=== PATIENT | male | born 1980 | race Caucasian/White ===

== ENCOUNTER 2017-07-23 09:15 | Observation (INO) | payer MEDICAID ==
[2017-07-23] MEDS ORDERED: Sodium Chloride 0.9% 1,000 ML IV STA (09:44)
--- NOTE | 2017-07-23 09:47 | ED PDOC ---
Arrival/HPI - General Chief Complaint: Back Pain Time Seen by Provider: 07/23/17 09:29 Historian: Patient - History of Present Illness Narrative History of Present Illness (Text): 07/23/17 09:44 36yr old male presents today with left sided flank pain radiating to the abdomen that started 2 hours ago. pt states he has been having on and off right sided back pain x 3 weeks. pt states he was seen by PMD in [place] and in [place] and was given pain medications. pt states 4 years ago patient had kidney stone with similar pain as current pain. no fever/chills. denies dysuria or urinary frequency. denies testicular pain. pt denies cp or sob. no vomiting/diarrhea. no other complaints. Past Medical History - Provider Review Nursing Documentation Reviewed: Yes - Travel History Have you recently traveled outside [place] w/in the past 3 mons?: Yes If Yes, travel location?: [place] - Infectious Disease Hx of Infectious Diseases: None - Tetanus Immunization Tetanus Immunization: Unknown - Past Medical History Past Medical History: No Previous - Renal Hx Renal Failure: No - Endocrine/Metabolic Hx Endocrine Disorders: No - Psychiatric Hx Substance Use: No - Past Surgical History Past Surgical History: No Previous - Surgical History Other/Comment: KIDNSY STONE - Anesthesia Hx Anesthesia: No - Suicidal Assessment Feels Threatened In Home Enviroment: No Family/Social History - Physician Review Nursing Documentation Reviewed: Yes Family/Social History: Unknown Family HX Smoking Status: Current Some Days Smoker Hx Alcohol Use: No Hx Substance Use: No Hx Substance Use Treatment: No Allergies/Home Meds Allergies/Adverse Reactions: Allergies No Known Allergies Allergy (Verified 08/16/14 08:10) Home Medications: Home Meds Medication Instructions Recorded Confirmed traMADol [Ultram] 50 mg 07/23/17 Review of Systems - Review of Systems Constitutional: absent: Fatigue, Fevers Respiratory: absent: SOB, Cough Cardiovascular: absent: Chest Pain, Palpitations Gastrointestinal: Abdominal Pain. absent: Constipation, Diarrhea, Nausea, Vomiting Genitourinary Male: absent: Dysuria, Frequency, Hematuria, Urinary Output Changes Musculoskeletal: Back Pain. absent: Arthralgias, Neck Pain Skin: absent: Rash, Pruritis Neurological: absent: Headache, Dizziness Psychiatric: absent: Anxiety, Depression Physical Exam Vital Signs Reviewed: Yes Vital Signs Temp Pulse Resp BP Pulse Ox 07/23/17 12:00 71 18 142/84 98 07/23/17 11:15 75 18 145/91 H 98 07/23/17 09:20 97.5 F L 79 18 149/100 H 99 Temperature: Afebrile Blood Pressure: Hypertensive Pulse: Regular Respiratory Rate: Normal Appearance: Positive for: Well-Appearing, Non-Toxic, Comfortable Pain Distress: None Mental Status: Positive for: Alert and Oriented X 3 - Systems Exam Head: Present: Atraumatic Mouth: Present: Moist Mucous Membranes Neck: Present: Normal Range of Motion Respiratory/Chest: Present: Clear to Auscultation, Good Air Exchange. No: Respiratory Distress, Accessory Muscle Use Cardiovascular: Present: Regular Rate and Rhythm, Normal S1, S2. No: Murmurs Abdomen: Present: Normal Bowel Sounds. No: Tenderness, Distention, Peritoneal Signs, Rebound, Guarding Genitourinary Male: Present: Normal External Genitalia, Other (chaparoned by Otis galeas RN. ). No: Penile Discharge, Testicle Tenderness, Penile Swelling, Masses, Erythema Back: Present: Normal Inspection, Other (+ left flank tenderness). No: CVA Tenderness, Midline Tenderness Upper Extremity: Present: Normal Inspection, Normal ROM Lower Extremity: Present: Normal Inspection, Normal ROM Neurological: Present: GCS=15, Speech Normal Skin: Present: Warm, Dry, Normal Color. No: Rashes Psychiatric: Present: Alert, Oriented x 3 Medical Decision Making ED Course and Treatment: 07/23/17 09:50 Patient is nontoxic well appearing with stable vital signs presenting with left flank pain radiating to left abdominal pain CBC: wnl CMP: wnl Lipase: wnl Urinalysis: + blood CAT scan:FINDINGS: LOWER THORAX: No evidence of acute pathology. LIVER: Heterogeneous attenuation is again noted suggestive of mild hepatic steatosis. No evidence of intrahepatic biliary ductal dilatation. GALLBLADDER AND BILE DUCTS: Unremarkable. PANCREAS: Unremarkable. No gross lesion or ductal dilatation. SPLEEN: Unremarkable. ADRENALS: Unremarkable. No mass. KIDNEYS AND URETERS: Mild left hydronephrosis up to 4 millimeter calculus at the left UP junction. There is 10 millimeter nonobstructing calculus at the mid to lower pole left kidney. The right kidney is grossly unremarkable. VASCULATURE: Unremarkable. No aortic aneurysm. BOWEL: Unremarkable. No obstruction. No gross mural thickening. APPENDIX: No evidence of appendicitis. PERITONEUM: Unremarkable. No free fluid. No free air. LYMPH NODES: Unremarkable. No enlarged lymph nodes. BLADDER: Unremarkable. REPRODUCTIVE: Unremarkable. BONES: No acute fracture. OTHER FINDINGS: Again seen is 4.7 x 1.8 centimeter intramuscular lipoma at the right lateral pelvic wall . IMPRESSION: Mild left hydronephrosis due to 4 millimeter calculus at the left UP junction. 10 millimeter nonobstructing calculus at the lower pole of the left kidney. Otherwise no evidence of acute pathology in the abdomen and pelvis. Patient reassessment: pt with continued pain after toradol. morphine added. Discussed all results with patient in depth pt reassessment; pt with continued pain despite toradol and morphine; additional dose of morphine added. flomax po added. case discussed with dr. gallegos; accepts observational status admission; case discussed with dr. alfaro; all aspects of this case were discussed the attending of record. Impression: Nephrolithiasis, hydronephrosis, intractable back pain Admitted observational status to [facility] with urology consult - Lab Interpretations Lab Results: 07/23/17 10:00 07/23/17 10:00 Lab Results 07/23/17 10:00: WBC 5.6, RBC 5.28, Hgb 16.0, Hct 45.7, MCV 86.6, MCH 30.3, MCHC 35.0, RDW 13.9, Plt Count 272, MPV 10.2, Gran % 43.4 L, Lymph % (Auto) 41.7 H, [place] % (Auto) 9.3 H, Eos % (Auto) 5.2 H, Baso % (Auto) 0.4, Gran # 2.43, Lymph # (Auto) 2.3, [place] # (Auto) 0.5, Eos # (Auto) 0.3, Baso # (Auto) 0.02 07/23/17 10:00: Sodium 140, Potassium 4.1, Chloride 105, Carbon Dioxide 24, Anion Gap 16, BUN 16, Creatinine 1.0, Est GFR ( Amer) > 60, Est GFR (Non- Af Amer) > 60, Random Glucose 97, Calcium 9.8, Total Bilirubin 1.1, AST 28, ALT 42, Alkaline Phosphatase 75, Total Protein 7.4, Albumin 4.2, Globulin 3.2, Albumin/Globulin Ratio 1.3, Lipase 137 07/23/17 10:00: Urine Color Light yellow, Urine Appearance Sl cloudy, Urine pH 6.0, Ur Specific [place] 1.025, Urine Protein 30 H, Urine Glucose (UA) Negative , Urine Ketones Negative, Urine Blood Large H, Urine Nitrate Negative, Urine Bilirubin Negative, Urine Urobilinogen 0.2, Ur Leukocyte Esterase Negative, Urine RBC 20 - 25, Urine WBC 0 - 2, Ur Epithelial Cells None - RAD Interpretation Radiology Orders: 07/23/17 09:38 ABD & PELVIS W/O PO OR IV CONT [CT] Stat CHEST PORTABLE [RAD] Stat - Medication Orders Current Medication Orders: Discontinued Medications Sodium Chloride (Sodium Chloride 0.9%) 1,000 mls @ 999 mls/hr IV .Q1H1M STA Stop: 07/23/17 10:44 Last Admin: 07/23/17 10:09 Dose: 999 mls/hr eMAR Start Stop Document 07/23/17 10:09 WATSON (Rec: 07/23/17 10:10 [id number] Intravenous Solution Start Date 07/23/17 Start Time 10:10 End Date 07/23/17 End time 11:10 Total Infusion Time 60 Ketorolac Tromethamine (Toradol) 30 mg IVP STAT STA Stop: 07/23/17 09:45 Last Admin: 07/23/17 10:10 Dose: 30 mg MAR Pain Assessment Document 07/23/17 10:10 WATSON (Rec: 07/23/17 10:12 [id number]) Pain Reassessment Is this a pain reassessment? Yes Presence of Pain Presence of Pain Yes Pain Scale Used Pain Scale Used Numeric Location Left, Right or Bilateral Left Upper or Lower Lower Pain Location Body Site Back Description Description Stabbing Intensity of Pain at present 10 Pain Behavior Moaning IVP Administration Document 07/23/17 10:10 WATSON (Rec: 07/23/17 10:12 [place] [id number]) Charges for Administration # of IVP Administrations 1 Morphine Sulfate (Morphine) 4 mg IVP STAT STA Stop: 07/23/17 12:02 Last Admin: 07/23/17 12:08 Dose: 4 mg MAR Pain Assessment Document 07/23/17 12:08 WATSON (Rec: 07/23/17 12:10 [place] [id number]) Pain Reassessment Is this a pain reassessment? Yes Presence of Pain Presence of Pain Yes Pain Scale Used Pain Scale Used Numeric Location Left, Right or Bilateral Left Upper or Lower Lower Pain Location Body Site Back Description Description Stabbing Intensity of Pain at present 4 IVP Administration Document 07/23/17 12:08 WATSON (Rec: 07/23/17 12:10 WATSON [id number]) Charges for Administration # of IVP Administrations 1 Morphine Sulfate (Morphine) 2 mg IVP STAT STA Stop: 07/23/17 13:45 Tamsulosin HCl (Flomax) 0.4 mg PO STAT STA Stop: 07/23/17 13:43 Disposition/Present on Arrival - Present on Arrival Any Indicators Present on Arrival: No History of DVT/PE: No History of Uncontrolled Diabetes: No Urinary Catheter: No History of Decub. Ulcer: No History Surgical Site Infection Following: None - Disposition Have Diagnosis and Disposition been Completed?: Yes Diagnosis: Intractable back pain, Nephrolithiasis, Hydronephrosis Disposition: HOSPITALIZED Disposition Time: 14:37 Patient Plan: Observation Condition: FAIR Referrals: Lester Gallardo MD [Primary Care Provider] - Follow up with primary Forms: [employer] (Lux[place]ish)
[2017-07-23 10:24] LABS: BASO # 0.02 K/mm3 (0.0-2.0); BASO % 0.4 % (0.0-3.0); EOS # 0.3 (0.0-0.7); EOS % 5.2 % (1.5-5.0); GRAN # 2.43 (1.4-6.5); GRAN % 43.4 % (50.0-68.0); LYMPH # 2.3 (1.2-3.4); LYMPH % 41.7 % (22.0-35.0); MEAN CELL VOLUME 86.6 fl (80.0-105.0); MEAN CORPUSCULAR HEMOGLOBIN 30.3 pg (25.0-35.0); MEAN PLATELET VOLUME 10.2 fl (7.0-11.0); MONO # 0.5 (0.1-0.6); MONO % 9.3 % (1.0-6.0); RBC 5.28 10^6/uL (3.5-6.1); RED CELL DISTRIBUTION WIDTH 13.9 % (11.5-14.5); WHITE BLOOD COUNT 5.6 10^3/ul (4.5-11.0)
[2017-07-23 10:25] LABS: URINE APPEARANCE SL CLOUDY (CLEAR); URINE BILIRUBIN NEGATIVE (NEGATIVE); URINE BLOOD LARGE (NEGATIVE); URINE COLOR LIGHT YELLOW (YELLOW); URINE GLUCOSE (UA) NEGATIVE (NEGATIVE); URINE LEUKOCYTE ESTERASE NEGATIVE Leu/uL (NEGATIVE); URINE PROTEIN 30 mg/dL (<30 mg/dL); URINE UROBILINOGEN 0.2 E.U./dL (<1 E.U./dL)
[2017-07-23 10:33] LABS: ALB/GLOB RATIO 1.3 (1.1-1.8); ALBUMIN 4.2 g/dL (3.0-4.8); ALT/SGPT 42 U/L (7-56); AST/SGOT 28 U/L (17-59); BLOOD UREA NITROGEN 16 mg/dL (7-21); CALCIUM 9.8 mg/dL (8.4-10.5); GFR AFRICAN-AMERICAN > 60; GFR NON-AFRICAN AMERICAN > 60; LIPASE 137 U/L (23-300)
[2017-07-23 11:11] LABS: URINE RBC 20 - 25 /hpf (0-2); URINE WBC 0 - 2 /hpf (0-6)
--- NOTE | 2017-07-23 11:25 | CT ---
PROCEDURE: CT Abdomen and Pelvis without intravenous contrast HISTORY: ABDOMINAL PAIN COMPARISON: Comparison is made to the previous study dated 08/16/2014 TECHNIQUE: Axial and reformatted coronal and sagittal CT images of the abdomen and pelvis were obtained without IV or oral contrast administration.. Contrast Dose: 0 Radiation dose: Total exam DLP = 1204.69 mGy-cm. This CT exam was performed using one or more of the following dose reduction techniques: Automated exposure control, adjustment of the mA and/or kV according to patient size, and/or use of iterative reconstruction technique. FINDINGS: LOWER THORAX: No evidence of acute pathology. LIVER: Heterogeneous attenuation is again noted suggestive of mild hepatic steatosis. No evidence of intrahepatic biliary ductal dilatation. GALLBLADDER AND BILE DUCTS: Unremarkable. PANCREAS: Unremarkable. No gross lesion or ductal dilatation. SPLEEN: Unremarkable. ADRENALS: Unremarkable. No mass. KIDNEYS AND URETERS: Mild left hydronephrosis up to 4 millimeter calculus at the left UP junction. There is 10 millimeter nonobstructing calculus at the mid to lower pole left kidney. The right kidney is grossly unremarkable. VASCULATURE: Unremarkable. No aortic aneurysm. BOWEL: Unremarkable. No obstruction. No gross mural thickening. APPENDIX: No evidence of appendicitis. PERITONEUM: Unremarkable. No free fluid. No free air. LYMPH NODES: Unremarkable. No enlarged lymph nodes. BLADDER: Unremarkable. REPRODUCTIVE: Unremarkable. BONES: No acute fracture. OTHER FINDINGS: Again seen is 4.7 x 1.8 centimeter intramuscular lipoma at the right lateral pelvic wall . IMPRESSION: Mild left hydronephrosis due to 4 millimeter calculus at the left UP junction. 10 millimeter nonobstructing calculus at the lower pole of the left kidney. Otherwise no evidence of acute pathology in the abdomen and pelvis.
[2017-07-23] MEDS ORDERED: Morphine 4 mg/ml ISec IVP STA (12:01)
[2017-07-23] MEDS ORDERED: Morphine 2 mg/ml ISec IVP STA (13:44)
[2017-07-23] MEDS ORDERED: Morphine 2 mg/ml ISec IVP PRN (15:22)
--- NOTE | 2017-07-23 15:40 | CP.PCM.HP ---
<So Klein - Last Filed: 07/23/17 15:35> History of Present Illness - History of Present Illness History of Present Illness: Billycaity Ernie DO PGY1 - IM H&P for Dr. Hurd CC: Left flank pain HPI: 36 yo M with PMH of prior kidney stones presents complaining of left sided flank pain radiating to his abdomen. Pain started 2 hours prior to presentation. He denies dysuria, hematuria, fever, chills, nausea, vomiting, diarrhea, constipation, chest pain, shortness of breath. Pain is sharp in character. He did not try anything to relieve the pain. Nothing in particular makes it worse. He reports that he had similar pain 3 weeks ago, while he was in [place], and was treated in the hospital with morphine, and sent home. He also had similar pain three years ago, and was told it was a kidney stone which he passed on his own. 12 point ROS was obtained and was negative except as above. 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 FHx: HTN in father All: NKDA Present on Admission - Present on Admission Any Indicators Present on Admission: No Past Patient History - Infectious Disease Hx of Infectious Diseases: None - Tetanus Immunizations Tetanus Immunization: Unknown - Past Social History Smoking Status: Current Some Days Smoker - RENAL Hx Renal Failure: No - ENDOCRINE/METABOLIC Hx Endocrine Disorders: No - PSYCHIATRIC Hx Substance Use: No - SURGICAL HISTORY Other/Comment: KIDNSY STONE - ANESTHESIA Hx Anesthesia: No Meds Allergies/Adverse Reactions: Allergies Allergy/AdvReac Type Severity Reaction Status Date / Time No Known Allergies Allergy Verified 07/23/17 16:29 Physical Exam - Constitutional Appears: Non-toxic, No Acute Distress - Head Exam Head Exam: ATRAUMATIC, NORMOCEPHALIC - Eye Exam Eye Exam: EOMI, Normal appearance, PERRL - ENT Exam ENT Exam: Mucous Membranes Moist - Neck Exam Neck exam: Positive for: Normal Inspection - Respiratory Exam Respiratory Exam: Clear to Auscultation Bilateral, NORMAL BREATHING PATTERN - Cardiovascular Exam Cardiovascular Exam: RRR, +S1, +S2 - GI/Abdominal Exam GI & Abdominal Exam: Normal Bowel Sounds, Soft. absent: Tenderness - Extremities Exam Extremities exam: Negative for: calf tenderness, pedal edema Additional comments: Large 10cm brown macule on right elbow - Back Exam Back exam: absent: CVA tenderness (L), CVA tenderness (R) - Neurological Exam Neurological exam: Alert, CN II-XII Intact, Oriented x3 - Psychiatric Exam Psychiatric exam: Normal Affect, Normal Mood - Skin Skin Exam: Dry, Intact, Normal Color Results - Vital Signs Recent Vital Signs: Last Vital Signs Temp 97.5 F L 07/23/17 09:20 Pulse 71 07/23/17 12:00 Resp 18 07/23/17 12:00 BP 142/84 07/23/17 12:00 Pulse Ox 98 07/23/17 12:00 - Labs Result Diagrams: 07/23/17 10:00 07/23/17 10:00 Assessment & Plan - Assessment and Plan (Free Text) Assessment: 36 yo M with PMH of prior kidney stones presents complaining of left sided flank pain radiating to his abdomen, onset 2 hours prior to admission. Noted to have 4mm stone in left UPJ with associated hydronephrosis seen on CT scan. Plan Left flank pain, 2/2 left ureterolithiasis/nephrolithiasis - CT A/P shows 4mm calculus in left UPJ with hydronephrosis up to the level of the stone, and 10mm nonobstructing calculus in mid-lower pole of left kidney - Afebrile, without leukocytosis; VSS - CMP and CBC wnl - IVF NS@200cc/hr - Encourage PO hydration - Start Flomax - Strain all urine - Pain control; Motrin/Toradol/Morphine for mild/moderate/severe pain, respectively - Urology consult requested; appreciate recs DVT Ppx: SCDs Patient seen, discussed, and reviewed with attending, Dr. Hurd <Eddi Hurd - Last Filed: 07/23/17 16:56> Results - Vital Signs Recent Vital Signs: Last Vital Signs Temp 97.5 F L 07/23/17 09:20 Pulse 71 07/23/17 12:00 Resp 18 07/23/17 12:00 BP 142/84 07/23/17 12:00 Pulse Ox 98 07/23/17 12:00 - Labs Result Diagrams: 07/23/17 10:00 07/23/17 10:00 Attending/Attestation - Attestation I have personally seen and examined this patient.: Yes I have fully participated in the care of the patient.: Yes I have reviewed all pertinent clinical information: Yes Notes (Text): 07/23/17 16:54 36 year old male with past medical history of prior kidney stone presents with complaint of left sided flank pain. CT abd/pelvis showed 4 mm left UPJ stone with hydronephrosis and 10 mm nonobstruction stone in left mid-lower pole kidney. Continue with fluids, analgesics and flomax. Strain for urine. Urology evaluation is requested. Eddi Hurd MD Hospitalist.
[2017-07-23] MEDS: Sodium Chloride 0.9% 1,000 ML IV SCH ×2 (15:42→20:31)
[2017-07-23 18:25] VITALS: BMI 37.3
[2017-07-23] MEDS ORDERED: Influenza Vaccine 60 mcg/0.5 mL SYR (4YR UP) IM ONE (18:25)
[2017-07-23] MEDS ORDERED: Pneumococcal 23-Valent Vaccine IM ONE (18:25)
[2017-07-23 23:06] VITALS: TEMP 97.9
[2017-07-24] MEDS: Sodium Chloride 0.9% 1,000 ML IV SCH ×2 (05:38→09:40)
--- NOTE | 2017-07-24 07:10 | RAD ---
HISTORY: left flank pain COMPARISON: No prior. FINDINGS: LUNGS: No active pulmonary disease. PLEURA: No significant pleural effusion identified, no pneumothorax apparent. CARDIOVASCULAR: Normal. OSSEOUS STRUCTURES: No significant abnormalities. VISUALIZED UPPER ABDOMEN: Normal. OTHER FINDINGS: None. IMPRESSION: No active disease.
[2017-07-24 08:12] VITALS: BP 142/85; PULSE 73; RESP 18; O2SAT 96
--- NOTE | 2017-07-24 23:11 | CP.PCM.DIS ---
<AmineSo - Last Filed: 07/25/17 19:41> Provider - Provider Date of Admission: 07/23/17 14:40 Attending physician: Eddi Hurd MD Primary care physician: Lester Gallardo MD Consults: Uro: Valeria Stiles Time Spent in preparation of Discharge (in minutes): 35 Diagnosis - Discharge Diagnosis (1) Nephrolithiasis Status: Acute Priority: High Hospital Course - Lab Results Lab Results: Most Recent Lab Values WBC 5.6 10^3/ul (4.5-11.0) 07/23/17 10:00 RBC 5.28 10^6/uL (3.5-6.1) 07/23/17 10:00 Hgb 16.0 g/dL (14.0-18.0) 07/23/17 10:00 Hct 45.7 % (42.0-52.0) 07/23/17 10:00 MCV 86.6 fl (80.0-105.0) 07/23/17 10:00 MCH 30.3 pg (25.0-35.0) 07/23/17 10:00 MCHC 35.0 g/dl (31.0-37.0) 07/23/17 10:00 RDW 13.9 % (11.5-14.5) 07/23/17 10:00 Plt Count 272 10^3/uL (120.0-450.0) 07/23/17 10:00 MPV 10.2 fl (7.0-11.0) 07/23/17 10:00 Gran % 43.4 % (50.0-68.0) L 07/23/17 10:00 Lymph % (Auto) 41.7 % (22.0-35.0) H 07/23/17 10:00 [place] % (Auto) 9.3 % (1.0-6.0) H 07/23/17 10:00 Eos % (Auto) 5.2 % (1.5-5.0) H 07/23/17 10:00 Baso % (Auto) 0.4 % (0.0-3.0) 07/23/17 10:00 Gran # 2.43 (1.4-6.5) 07/23/17 10:00 Lymph # (Auto) 2.3 (1.2-3.4) 07/23/17 10:00 [place] # (Auto) 0.5 (0.1-0.6) 07/23/17 10:00 Eos # (Auto) 0.3 (0.0-0.7) 07/23/17 10:00 Baso # (Auto) 0.02 K/mm3 (0.0-2.0) 07/23/17 10:00 Sodium 140 mmol/L (132-148) 07/23/17 10:00 Potassium 4.1 mmol/L (3.6-5.0) 07/23/17 10:00 Chloride 105 mmol/L (98-107) 07/23/17 10:00 Carbon Dioxide 24 mmol/L (21-33) 07/23/17 10:00 Anion Gap 16 (10-20) 07/23/17 10:00 BUN 16 mg/dL (7-21) 07/23/17 10:00 Creatinine 1.0 mg/dl (0.8-1.5) 07/23/17 10:00 Est GFR ( Amer) > 60 07/23/17 10:00 Est GFR (Non-Af Amer) > 60 07/23/17 10:00 Random Glucose 97 mg/dL (70-110) 07/23/17 10:00 Calcium 9.8 mg/dL (8.4-10.5) 07/23/17 10:00 Total Bilirubin 1.1 mg/dL (0.2-1.3) 07/23/17 10:00 AST 28 U/L (17-59) 07/23/17 10:00 ALT 42 U/L (7-56) 07/23/17 10:00 Alkaline Phosphatase 75 U/L (38-126) 07/23/17 10:00 Total Protein 7.4 g/dL (5.8-8.3) 07/23/17 10:00 Albumin 4.2 g/dL (3.0-4.8) 07/23/17 10:00 Globulin 3.2 gm/dL 07/23/17 10:00 Albumin/Globulin Ratio 1.3 (1.1-1.8) 07/23/17 10:00 Lipase 137 U/L (23-300) 07/23/17 10:00 Urine Color Light yellow (YELLOW) 07/23/17 10:00 Urine Appearance Sl cloudy (CLEAR) 07/23/17 10:00 Urine pH 6.0 (4.7-8.0) 07/23/17 10:00 Ur Specific [place] 1.025 (1.005-1.035) 07/23/17 10:00 Urine Protein 30 mg/dL (<30 mg/dL) H 07/23/17 10:00 Urine Glucose (UA) Negative mg/dL (NEGATIVE) 07/23/17 10:00 Urine Ketones Negative mg/dL (NEGATIVE) 07/23/17 10:00 Urine Blood Large (NEGATIVE) H 07/23/17 10:00 Urine Nitrate Negative (NEGATIVE) 07/23/17 10:00 Urine Bilirubin Negative (NEGATIVE) 07/23/17 10:00 Urine Urobilinogen 0.2 E.U./dL (<1 E.U./dL) 07/23/17 10:00 Ur Leukocyte Esterase Negative [place]/uL (NEGATIVE) 07/23/17 10:00 Urine RBC 20 - 25 /hpf (0-2) 07/23/17 10:00 Urine WBC 0 - 2 /hpf (0-6) 07/23/17 10:00 Ur Epithelial Cells None /hpf (0-5) 07/23/17 10:00 - Hospital Course Hospital Course: 36 yo M with PMH of prior kidney stones presents complaining of left sided flank pain radiating to his abdomen. Pain started 2 hours prior to presentation. CT A/P in the ER showed left sided nephrolithiasis. On admission, patient was hemodynamically stable, without nausea or vomiting. Urology was consulted, and patient was started on flomax, aggressive IV hydration, and pain control regimen. Urine was strained throughout hospitalization, but no stone was collected. Today, patient reports pain is significantly improved, and has not required narcotics for pain control. Patient is tolerating regular diet without nausea or vomiting. Urology recommended outpatient follow up for recurrent nephrolithiasis. Patient denies any dysuria, hematuria, fever, chills, nausea, vomiting, diarrhea, constipation, chest pain, shortness of breath. Patient was given prescription for one week course of Flomax, and encouraged to hydrate himself aggressively, orally. He was also instructed to follow up with Urology, whom he has an appointment with tomorrow. Patient verbalized understanding and agreement with plan. All questions were answered to his satisfaction, and he was discharged to home. Discharge Exam - Head Exam Head Exam: ATRAUMATIC, NORMOCEPHALIC - Eye Exam Eye Exam: EOMI, Normal appearance, PERRL - ENT Exam ENT Exam: Mucous Membranes Moist - Neck Exam Neck exam: Normal Inspection - Respiratory Exam Respiratory Exam: Clear to PA & Lateral, NORMAL BREATHING PATTERN - Cardiovascular Exam Cardiovascular Exam: RRR, +S1, +S2 - GI/Abdominal Exam GI & Abdominal Exam: Normal Bowel Sounds, Soft. absent: Tenderness - Extremities Exam Extremities exam: normal inspection - Back Exam Back exam: absent: CVA tenderness (L), CVA tenderness (R) - Neurological Exam Neurological exam: Alert, Oriented x3 - Psychiatric Exam Psychiatric exam: Normal Affect, Normal Mood - Skin Skin Exam: Dry, Intact, Normal Color Discharge Plan - Discharge Medications Prescriptions: Ibuprofen [Motrin Tab] 600 mg PO Q6H PRN #20 tab PRN Reason: Pain, Mild (1-3) Tamsulosin [Flomax] 0.4 mg PO DAILY #7 cap - Follow Up Plan Condition: FAIR Disposition: HOME/ ROUTINE Instructions: Hydronephrosis in Adults, Kidney Stones (DC), Back Pain (GEN) Additional Instructions: 1. Continue to take Flomax once daily for one week 2. Continue to take ibuprofen 600mg every 6 hours as needed for pain 3. Continue to drink plenty of fluids 4. Observe your urine for any stones you may pass 5. Follow up with Dr. Stiles as indicated 6. Follow up with your PCP within one week 7. For any new or worsening concerns, contact your PCP immediately or return to the ER Referrals: Aditya Stiles MD [Staff Provider] - Lester Gallardo MD [Primary Care Provider] - <Eddi Hurd - Last Filed: 07/26/17 21:51> Provider - Provider Date of Admission: 07/23/17 14:40 Attending physician: Eddi Hurd MD Primary care physician: Lester Gallardo MD Hospital Course - Lab Results Lab Results: Most Recent Lab Values WBC 5.6 10^3/ul (4.5-11.0) 07/23/17 10:00 RBC 5.28 10^6/uL (3.5-6.1) 07/23/17 10:00 Hgb 16.0 g/dL (14.0-18.0) 07/23/17 10:00 Hct 45.7 % (42.0-52.0) 07/23/17 10:00 MCV 86.6 fl (80.0-105.0) 07/23/17 10:00 MCH 30.3 pg (25.0-35.0) 07/23/17 10:00 MCHC 35.0 g/dl (31.0-37.0) 07/23/17 10:00 RDW 13.9 % (11.5-14.5) 07/23/17 10:00 Plt Count 272 10^3/uL (120.0-450.0) 07/23/17 10:00 MPV 10.2 fl (7.0-11.0) 07/23/17 10:00 Gran % 43.4 % (50.0-68.0) L 07/23/17 10:00 Lymph % (Auto) 41.7 % (22.0-35.0) H 07/23/17 10:00 [place] % (Auto) 9.3 % (1.0-6.0) H 07/23/17 10:00 Eos % (Auto) 5.2 % (1.5-5.0) H 07/23/17 10:00 Baso % (Auto) 0.4 % (0.0-3.0) 07/23/17 10:00 Gran # 2.43 (1.4-6.5) 07/23/17 10:00 Lymph # (Auto) 2.3 (1.2-3.4) 07/23/17 10:00 [place] # (Auto) 0.5 (0.1-0.6) 07/23/17 10:00 Eos # (Auto) 0.3 (0.0-0.7) 07/23/17 10:00 Baso # (Auto) 0.02 K/mm3 (0.0-2.0) 07/23/17 10:00 Sodium 140 mmol/L (132-148) 07/23/17 10:00 Potassium 4.1 mmol/L (3.6-5.0) 07/23/17 10:00 Chloride 105 mmol/L (98-107) 07/23/17 10:00 Carbon Dioxide 24 mmol/L (21-33) 07/23/17 10:00 Anion Gap 16 (10-20) 07/23/17 10:00 BUN 16 mg/dL (7-21) 07/23/17 10:00 Creatinine 1.0 mg/dl (0.8-1.5) 07/23/17 10:00 Est GFR ( Amer) > 60 07/23/17 10:00 Est GFR (Non-Af Amer) > 60 07/23/17 10:00 Random Glucose 97 mg/dL (70-110) 07/23/17 10:00 Calcium 9.8 mg/dL (8.4-10.5) 07/23/17 10:00 Total Bilirubin 1.1 mg/dL (0.2-1.3) 07/23/17 10:00 AST 28 U/L (17-59) 07/23/17 10:00 ALT 42 U/L (7-56) 07/23/17 10:00 Alkaline Phosphatase 75 U/L (38-126) 07/23/17 10:00 Total Protein 7.4 g/dL (5.8-8.3) 07/23/17 10:00 Albumin 4.2 g/dL (3.0-4.8) 07/23/17 10:00 Globulin 3.2 gm/dL 07/23/17 10:00 Albumin/Globulin Ratio 1.3 (1.1-1.8) 07/23/17 10:00 Lipase 137 U/L (23-300) 07/23/17 10:00 Urine Color Light yellow (YELLOW) 07/23/17 10:00 Urine Appearance Sl cloudy (CLEAR) 07/23/17 10:00 Urine pH 6.0 (4.7-8.0) 07/23/17 10:00 Ur Specific [place] 1.025 (1.005-1.035) 07/23/17 10:00 Urine Protein 30 mg/dL (<30 mg/dL) H 07/23/17 10:00 Urine Glucose (UA) Negative mg/dL (NEGATIVE) 07/23/17 10:00 Urine Ketones Negative mg/dL (NEGATIVE) 07/23/17 10:00 Urine Blood Large (NEGATIVE) H 07/23/17 10:00 Urine Nitrate Negative (NEGATIVE) 07/23/17 10:00 Urine Bilirubin Negative (NEGATIVE) 07/23/17 10:00 Urine Urobilinogen 0.2 E.U./dL (<1 E.U./dL) 07/23/17 10:00 Ur Leukocyte Esterase Negative [place]/uL (NEGATIVE) 07/23/17 10:00 Urine RBC 20 - 25 /hpf (0-2) 07/23/17 10:00 Urine WBC 0 - 2 /hpf (0-6) 07/23/17 10:00 Ur Epithelial Cells None /hpf (0-5) 07/23/17 10:00 Attending/Attestation - Attestation I have personally seen and examined this patient.: Yes I have fully participated in the care of the patient.: Yes I have reviewed all pertinent clinical information, including history, physical exam and plan: Yes Notes (Text): 07/26/17 21:50 36 year old male with past medical history of prior kidney stone presented with complaint of left sided flank pain. CT abd/pelvis showed 4 mm left UPJ stone with hydronephrosis and 10 mm nonobstruction stone in left mid-lower pole kidney. Symptoms improved with iv fluids, analgesics and flomax. He is discharged home to follow up with pmd and urologist. Eddi Hurd MD Hospitalist.
== END 2017-07-24 14:15 | disposition home or self-care (01) ==
LOC: ED 09:15 → ERH 14:40 → 5RNO 15:23
PROVIDERS: ADMIT Internal Medicine; ATTEND Internal Medicine
DX: N13.2 Hydronephrosis with renal and ureteral calculous obstruction (principal); Z87.442 Personal history of urinary calculi; F17.200 Nicotine dependence, unspecified, uncomplicated; Z82.49 Family history of ischemic heart disease and other diseases of the circulatory system
CPT/HCPCS: 71045; 74176; 80053; 81001; 83690; 85025; 96361; 96374; 96375; 96376; 99285; G0378; J1885; J2270; J7040